=== PATIENT | male | born 1965 | race Caucasian/White ===

== ENCOUNTER 2019-04-28 10:35 | Emergency (ER) | payer BC ==
[~2019-04-28] VITALS: Ht 157.5 cm; Wt 78.0 kg
[~2019-04-28 10:35] MED LIST: ASPI-817 PO; FENO145T37 PO; GLYBURIDE-METFORMIN PO; LOSA1TAB25 PO; MULTI PO; SITA100T11 PO
[2019-04-28 10:39] VITALS: Ht 157.5 cm; Wt 78.0 kg
[2019-04-28 13:34] VITALS: BP 128/85; PULSE 76; RESP 15
== END 2019-04-28 13:41 | disposition home or self-care (01) ==
LOC: E/R 10:35
DX: R55 Syncope and collapse (principal); I10 Essential (primary) hypertension; R42 Dizziness and giddiness; R07.9 Chest pain, unspecified; E11.65 Type 2 diabetes mellitus with hyperglycemia; Z79.82 Long term (current) use of aspirin; Z79.84 Long term (current) use of oral hypoglycemic drugs
CPT/HCPCS: 36415; 71045; 80053; 81001; 83880; 84484; 85025; 85610; 93005; Z7502; 81003